=== PATIENT | female | born 1950 | race Caucasian/White ===

== ENCOUNTER → 2018-05-20 | Day surgery (SDC) | payer BC, MEDICARE ==
[~2018-05-20] MED LIST: BUPIVACAINE HCL 0.5 % INJ/PF 30 ML SDV ONE; METHYLPREDNISOLONE ACETATE INJ 80 MG/1 ML VIAL ONE
--- NOTE | 2018-05-20 14:04 | RADIOLOGY REPORT (SQ) ---
EXAM DESCRIPTION: INJECT/ASPIR HIP/SHLDR/KNEE; FLUORO/NEEDLE PLACEMENT COMPLETED DATE/TIME: 05/20/2018 1:50 pm REASON FOR STUDY: M25.551 PAIN IN RIGHT HIP M25.551 PAIN IN RIGHT HIP COMPARISON: None. FLUOROSCOPY TIME: 0.3 minutes. 1 images saved to PACS. LIMITATIONS: None. PROCEDURE: SITE OF INJECTION: Right hip. LOCALIZING CONTRAST TYPE AND DOSE: 1 mL Omnipaque 300. MEDICATION TYPE AND DOSE: 80 mg Depo-Medrol and 4 mL Sensorcaine. Using local anesthesia and sterile technique with fluoroscopic guidance, the needle was advanced into the joint. Iodinated contrast was injected to verify intraarticular placement. This was followed by therapeutic injection of the indicated medications. The needle was removed. There were no immediat e complications. Preprocedure pain level: 10/10. Postprocedure pain level: 5/10. IMPRESSION: THERAPEUTIC INJECTION OF THE RIGHT HIP JOINT ABOVE. COMMENT: Patient medication list reviewed: Yes- Quality ID# [id number]:Eligible professional attests to doc umenting in the medical record they obtained, updated, or reviewed the patient's current medications. . Quality ID 145: Final reports for procedures using fluoroscopy that document radiation exposure mar mary carmen, or exposure time and number of fluorographic images (if radiation exposure indices are not avail able) TECHNICAL DOCUMENTATION: JOB ID: [id number] [employer]- All Rights Reserved Reading location - IP/workstation name: [email or web address]
--- NOTE | 2018-05-20 14:04 | RADIOLOGY REPORT (SQ) ---
EXAM DESCRIPTION: INJECT/ASPIR HIP/SHLDR/KNEE; FLUORO/NEEDLE PLACEMENT COMPLETED DATE/TIME: 05/20/2018 1:50 pm REASON FOR STUDY: M25.551 PAIN IN RIGHT HIP M25.551 PAIN IN RIGHT HIP COMPARISON: None. FLUOROSCOPY TIME: 0.3 minutes. 1 images saved to PACS. LIMITATIONS: None. PROCEDURE: SITE OF INJECTION: Right hip. LOCALIZING CONTRAST TYPE AND DOSE: 1 mL Omnipaque 300. MEDICATION TYPE AND DOSE: 80 mg Depo-Medrol and 4 mL Sensorcaine. Using local anesthesia and sterile technique with fluoroscopic guidance, the needle was advanced into the joint. Iodinated contrast was injected to verify intraarticular placement. This was followed by therapeutic injection of the indicated medications. The needle was removed. There were no immediat e complications. Preprocedure pain level: 10/10. Postprocedure pain level: 5/10. IMPRESSION: THERAPEUTIC INJECTION OF THE RIGHT HIP JOINT ABOVE. COMMENT: Patient medication list reviewed: Yes- Quality ID# [id number]:Eligible professional attests to doc umenting in the medical record they obtained, updated, or reviewed the patient's current medications. . Quality ID 145: Final reports for procedures using fluoroscopy that document radiation exposure mar mary carmen, or exposure time and number of fluorographic images (if radiation exposure indices are not avail able) TECHNICAL DOCUMENTATION: JOB ID: [id number] [employer]- All Rights Reserved Reading location - IP/workstation name: [email or web address]
== END ==
LOC: RAD 12:59
PROVIDERS: ATTEND Physician Assistant
DX: M25.551 Pain in right hip (principal)
CPT/HCPCS: 20610; 77002; J3490; J1040

== ENCOUNTER → 2018-08-24 | Day surgery (SDC) | payer BC, MEDICARE ==
[~2018-08-24] MED LIST changes: -BUPIVACAINE HCL 0.5 % INJ/PF 30 ML SDV ONE
--- NOTE | 2018-08-24 15:56 | RADIOLOGY REPORT (SQ) ---
EXAM DESCRIPTION: INJECT/ASPIR HIP/SHLDR/KNEE; FLUORO/NEEDLE PLACEMENT COMPLETED DATE/TIME: 08/24/2018 2:46 pm REASON FOR STUDY: M16.11 UNILATERAL PRIMARY OSTEOARTHRITIS, RIGHT HIP M16.11 UNILATERAL PRIMARY OST EOARTHRITIS, RIGHT HIP COMPARISON: 05/20/2018 FLUOROSCOPY TIME: 1 minutes 31 seconds 1 images saved to PACS. LIMITATIONS: None. PROCEDURE: SITE OF INJECTION: Right hip LOCALIZING CONTRAST TYPE AND DOSE: Omnipaque 300, 3 mL MEDICATION TYPE AND DOSE: Bupivacaine, 5 mL, lidocaine, 10 mL, Depo-Medrol 80 mg Using local anesthesia and sterile technique with fluoroscopic guidance, the needle was advanced into the joint. Iodinated contrast was injected to verify intraarticular placement. This was followed by therapeutic injection of the indicated medications. The needle was removed. There were no immediat e complications. Preprocedure pain level: 5/10. Postprocedure pain level: 4/10. IMPRESSION: THERAPEUTIC INJECTION OF THE RIGHT HIP JOINT ABOVE. COMMENT: Patient medication list reviewed: Yes- Quality ID# [id number]:Eligible professional attests to doc umenting in the medical record they obtained, updated, or reviewed the patient's current medications. . Quality ID 145: Final reports for procedures using fluoroscopy that document radiation exposure mar mary carmen, or exposure time and number of fluorographic images (if radiation exposure indices are not avail able) TECHNICAL DOCUMENTATION: JOB ID: [id number] [employer]- All Rights Reserved Reading location - IP/workstation name: [email or web address]
== END ==
LOC: RAD 12:45
PROVIDERS: ATTEND Physician Assistant
DX: M16.11 Unilateral primary osteoarthritis, right hip (principal); E11.9 Type 2 diabetes mellitus without complications; I10 Essential (primary) hypertension; M06.9 Rheumatoid arthritis, unspecified; Z79.899 Other long term (current) drug therapy; Z86.718 Personal history of other venous thrombosis and embolism
CPT/HCPCS: 20610; 77002; J1040